=== PATIENT | female | born 1985 | race Two or more races ===

== ENCOUNTER 2022-08-17 02:31 | Day surgery (SDC) | payer BC, SELFPAY ==
[2022-08-03 15:20] VITALS: BMI 36.6
--- NOTE | 2022-08-03 15:25 | PC.NURSE ---
Report to the Outpatient Waiting Room, entrance under the green pavilion located off [facility], at time 0715 on date 08/17/22. Planned Procedure Time: 0915. Time changes happen often and if your time is changed the preop area will call you the afternoon before. - You and your visitor will be asked to self-screen and do not enter if you have any COVID symptoms. - Only one visitor is requested with a max of two and NO children visitors are allowed at this time. - The patient visitor may be requested to leave or wait in car when not with patient due to distancing restrictions. - A mask is optional within the hospital at this time. Patients may have clear liquids (water, carbonated beverages, clear teas, apple juice) until 3 hours prior to surgery with a maximum of 20 ounces. - No food from midnight until time of surgery Take the following medications with a SIP of water the morning of surgery: NONE DO NOT STOP ANY OF YOUR OTHER PRESCRIPTION MEDICATIONS PRIOR TO SURGERY EXCEPT THE FOLLOWING Medications to discontinue per physician: VITAMINS/SUPPLEMENTS Date to take last dose: 08/13/22 Please no make-up, nail turkmen, hairspray, perfume, deodorant, or body powder the day of surgery. No jewelry (including any body piercings) or valuables the day of surgery, leave them at home. Please take a shower or bath the night before, or the morning of, surgery with an antibacterial soap. Wear comfortable, loose fitting clothing. - Jewelry must be removed prior to entering the operating room. Rings and piercings that are not removed may be cut off. - The hospital will not accept responsibility for valuables. - Please leave all valuables, including medications, at home the day of surgery. If you are going home after surgery, a licensed coal tram driver must drive you home. - NO public transportation without another adult if you receive anesthesia. - We recommend that an adult stay with you for 24 hours following discharge. - We also recommend that you do not drive, make important decision, drink alcoholic beverages, or take any drugs that were not prescribed by your health care provider for at least 24 hours after your discharge time. Follow any additional instructions given to you from your surgeon. If you or anyone in your household have experienced Covid symptoms in the past week, please notify your surgeon or the nurse liaison at the phone number below for possible testing. Telephone instructions given to PT - SU HERNANDEZ and asked if any additional questions and then verbalized understanding. Patient advised to call surgeon office or pre surgery nurse liaison [phone] if any additional questions.
--- NOTE | 2022-08-15 15:39 | PM.IMHP ---
H&P: HPI History of Present Illness Date/Time: 08/15/22 15:39 36-year-old female 07/1000 presents for evaluation and treatment of heavy vaginal bleeding as well as tubal ligation. Her cycles are lasting 5-7 days with 3-5 days very heavy with clotting and cramping and has been told in the past that she has been anemic. Also desires sterilization. Ultrasound ordered prior to procedure revealed small uterine fibroid, and right paratubal cyst versus hydrosalpinx. Chief Complaint: 1. Menometrorrhagia 2. Undesired fertility Review of Systems Review of Systems: All systems reviewed & are unremarkable except as noted in HPI and below PMFSH Past Medical History Medical History Anemia Hypertension Family History Family History Sibling Anemia Grandparent Hypertension Social History Social History Smoking status: Current some day smoker Tobacco type: cigarettes Second hand tobacco smoke exposure: No Additional smoking assessment comments: ONCE A MONTH Alcohol intake: never Alcohol use details: 1 x month Substance use: never Substance use type: does not use Living arrangements: with family Additional living arrangements comments: Occupation/Education: occupation 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 Gender identity (if verbalized by the patient): Female Sexual Orientation (if Verbalized by the Patient): Straight or Heterosexual Spiritual care concerns: No Agree to blood products: Yes Meds Home Medications and Allergies Home Medications Medication Instructions Recorded Confirmed Type levocetirizine 5 mg tablet (Xyzal) 5 mg PO DAILY 10/26/21 08/03/22 History ferrous sulfate 325 mg (65 mg 325 mg PO DAILY 08/03/22 08/03/22 History iron) tablet (Iron (ferrous sulfate)) Allergies Allergy/AdvReac Type Severity Reaction Status Date / Time Penicillins Allergy Mild Swelling Verified 08/03/22 15:18 Exam Const: General: cooperative, healthy appearing and comfortable Resp: Effort & Inspection: normal respiratory effort Auscultation: clear to auscultation bilaterally Cardio: Rate: regular rate Rhythm: regular rhythm GI: Inspection: normal to inspection Auscultation: normal bowel sounds : External Female Exam: normal external appearance Speculum Exam - Vagina: normal appearance of the vagina Speculum Exam - Cervix: normal appearance of the cervix Bimanual exam- vagina & uterus: enlarged ( 8-10 week size) Bimanual Exam- Adnexa, other: normal adnexae Assessment and Plan Assessment and plan (1) Menometrorrhagia: Code(s): N92.1 - Excessive and frequent menstruation with irregular cycle Status: Acute Assessment and Plan: proceed with hysteroscopy with uterine curettings to be followed by endometrial ablation. (2) Encounter for female sterilization procedure: Code(s): Z30.2 - Encounter for sterilization Status: Acute Assessment and Plan: We discussed the permanence failure rate increased risk of ectopic and regret. She strongly desires to proceed with bilateral salpingectomy. 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
--- NOTE | 2022-08-16 14:27 | P.PNAN_ITS ---
Anes - Initial Pre Proc Eval Procedure: Operation Date: 08/17/22 09:15 Proposed Procedures p Hysteroscopy with Dilation and Currettage, Mariann Endometrial Ablation, Laparoscopic Bilateral Salpingectomy - Josh Briscoe MD Date/Time: 08/16/22 14:27 Surgeon: Josh Briscoe MD Pre Op Diagnosis: Menometrorrhagia, Desire Sterilization Patient Data Age: 36 Gender: F Height: 1.65 m Weight: 99.8 kg Allergies Allergy/AdvReac Type Severity Reaction Status Date / Time Penicillins Allergy Mild Swelling Verified 08/17/22 08:11 Home Medications Medication Instructions Recorded Confirmed Type levocetirizine 5 mg tablet (Xyzal) 5 mg PO DAILY 10/26/21 08/17/22 History ferrous sulfate 325 mg (65 mg 325 mg PO DAILY 08/03/22 08/17/22 History iron) tablet (Iron (ferrous sulfate)) Patient hx anesthesia problems: none Family hx anesthesia problems: none Results Review: All pre-operative results and documents have been reviewed as part of the pre- operative evaluation. 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 Gender identity (if verbalized by the patient): Female Sexual Orientation (if Verbalized by the Patient): Straight or Heterosexual Spiritual care concerns: No Agree to blood products: Yes Anes - Eval Final PreProcedure Day of Procedure 08/16/22 14:27 Patient weight: morbidly obese Heart: regular rate and rhythm Lungs: clear to auscultation and normal air movement Airway: Mallampati scale class II Neurological: alert and oriented Last oral intake: >/= 8 hours ASA classification: III Emergent: no Anesthetic plan: proceed Anesthesia type and monitoring: general ETT Results Review: All pre-operative results and documents have been reviewed as part of the pre- operative evaluation. Informed Consent: The patient's anesthetic plan and its attendant risks and benefits were discussed with the patient/family/POA. Questions were solicited and answers provided to the satisfaction of the patient/family/POA.
[2022-08-17] VITALS (8 sets, daily range): BP systolic 106–143; BP diastolic 58–83; PULSE 44–75; RESP 10–16; TEMP 36.3–36.8; O2SAT 96–100
--- NOTE | 2022-08-17 07:14 | WPDHPUPDATE1 ---
History and Physical Update Update Date/Time: 08/17/22 07:14 History and Physical has been reviewed, including an updated exam of the patient. There are NO changes in the patient's condition. Risks, benefits, and alternatives have been discussed and questions answered. Patient agrees to proceed with procedure.
[2022-08-17] MEDS: LACTATED RINGERS 1,000 ML 30 ML IV CONT (07:58)
[2022-08-17] MEDS: KETOROLAC 15 MG/ML VIAL (*BKC) IV PUSH (07:59)
[2022-08-17] MEDS: ACETAMINOPHEN 500 MG TABLET 1000 MG PO (07:59)
[2022-08-17] MEDS: ceFAZolin 3 GM/D5W 100 ML 100 ML IVPB (09:42)
--- NOTE | 2022-08-17 10:34 | W.PM.PROC2 ---
Procedure Note - Detailed Date of Procedure 08/17/22 Pre-op Diagnosis Menometrorrhagia Desire Sterilization Post-op Diagnosis Same Procedure Performed 1. Hysteroscopy with uterine curettings 2. Endometrial ablation 3. Laparoscopic bilateral salpingectomy Surgeon Josh Briscoe MD Anesthesia General Findings 1. Endometrial cavity no abnormalities 2. Laparoscopic exam revealed mildly enlarged uterus, with normal tubes and ovaries Description of Procedure Patient was prepped and draped in usual manner for this procedure. Attention was 1st placed the vagina and the cervix was dilated to allow the hysteroscope to be placed which revealed no abnormalities. Curettings were obtained and the instrument was placed for the ablation. Cavity assessment was performed, instrument activated, and at the end of the procedure hysteroscopic exam revealed good destruction throughout. Periumbilical incision was made through which the trocar was placed with visualization of abdominal and pelvic contents. Bilateral lower quadrant incisions were then made and trocars were again placed under direct visualization. Using Harmonic scalpel bilaterally the mesial salpinx were cauterized and both tubes removed without difficulty. There was no bleeding. Gas was allowed to escape incisions approximated using 4-0 Monocryl and the patient was sent to the cover room in stable condition. Estimated Blood Loss 10 Drains No Packing No Pathology Yes Complications No immediate complications Condition Stable Disposition PACU [facility] Billing Surgery - Charge Forward: Surgery Billing
[2022-08-17] MEDS: fentaNYL CITRATE INJ (*CRX) 100 MCG/2 ML VIAL 25 MCG IV PUSH (11:08)
[2022-08-17] MEDS: oxyCODONE HCL (*CRX) 5 MG TAB IR PO (11:45)
== END 2022-08-17 12:37 | disposition home or self-care (01) ==
PROVIDERS: PCP Family Medicine Adolescent Medicine; Visit Provider Obstetrics & Gynecology
PROC: 0UDB8ZZ Extraction of Endometrium, Via Natural or Artificial Opening Endoscopic (ICD-10-PCS; CPT 58558; principal; 2022-08-17 09:15)
DX: N92.1 Excessive and frequent menstruation with irregular cycle (principal); Z30.2 Encounter for sterilization; N83.8 Other noninflammatory disorders of ovary, fallopian tube and broad ligament; D64.9 Anemia, unspecified; F17.210 Nicotine dependence, cigarettes, uncomplicated; E66.01 Morbid (severe) obesity due to excess calories; Z68.42 Body mass index [BMI] 45.0-49.9, adult
CPT/HCPCS: 58563; 58661; 88302; 88305; A9270; J0690; J1100; J1885; J2250; J2405; J2704; J2710; J3010; J7120

== ENCOUNTER 2022-11-13 08:07 | Outpatient (CLI) | payer BC, SELFPAY ==
[2022-11-13 10:19] LABS: Hematocrit 39.1 % (37.0-47.0); Hemoglobin 12.2 g/dL (12.0-15.0); Mean Corpuscular HGB Conc 31.2 g/dl (32-36); Mean Corpuscular Hemoglobin 25.7 pg (26-34); Mean Corpuscular Volume 82.5 fl (80-100); Mean Platelet Volume 8.9 fl (7.4-10.4); Platelet Count Result 299 k/mm3 (150-375); Red Blood Count 4.74 M/mm3 (4.2-5.4); Red Cell Distribution Width 13.9 % (11.5-14.5); White Blood Count 9.6 K/mm3 (4.5-10.0)
[2022-11-13 10:20] LABS: Hematocrit 38.6 % (37.0-47.0); Hemoglobin 12.2 g/dL (12.0-15.0)
== END 2022-11-13 08:08 | disposition home or self-care (01) ==
PROVIDERS: Anesthesiology; PCP Family Medicine Adolescent Medicine; Visit Provider Obstetrics & Gynecology
DX: N93.9 Abnormal uterine and vaginal bleeding, unspecified (principal); D50.9 Iron deficiency anemia, unspecified; Z01.818 Encounter for other preprocedural examination
CPT/HCPCS: 36415; 85014; 85018; 85027; 86850; 86900; 86901

== ENCOUNTER 2022-11-17 01:48 | Day surgery (SDC) | payer BC, SELFPAY ==
[2022-11-08 13:06] VITALS: BMI 46.7
--- NOTE | 2022-11-08 13:26 | SUR.PREOP ---
Report to the Outpatient Waiting Room, entrance under the green pavilion located off [facility], at time 0600 on date 11/17/2022. Planned Procedure Time: 0730. Time changes happen often and if your time is changed the preop area will call you the afternoon before. - You and your visitor will be asked to self-screen and do not enter if you have any COVID symptoms. - A mask is optional within the hospital at this time. Patients may have clear liquids (water, carbonated beverages, clear teas, apple juice) until 3 hours prior to surgery with a maximum of 20 ounces- 0430. - No food from midnight until time of surgery - Infants may have breast milk until 4 hours before surgery, formula 6 hours prior to surgery. - Children will be allowed to drink immediately following surgery. If applicable, please bring a bottle or sippy cup to assist with drinking. Juice, water, soda, and popsicles are readily available. For infants on formula, please bring formula the day of surgery. Pacifiers are allowed. Take the following medications with a SIP of water the morning of surgery: N/A DO NOT STOP ANY OF YOUR OTHER PRESCRIPTION MEDICATIONS PRIOR TO SURGERY ?EXCEPT THE FOLLOWING Medications to discontinue per physician Iron Date to take last dose 11/13/2022 Please no make-up, nail turkmen, hairspray, perfume, deodorant, or body powder the day of surgery. No jewelry (including any body piercings) or valuables the day of surgery, leave them at home. Please take a shower or bath the night before, or the morning of, surgery with an antibacterial soap. Wear comfortable, loose fitting clothing. Children are encouraged to wear pajamas. - Jewelry must be removed prior to entering the operating room. Rings and piercings that are not removed may be cut off. - The hospital will not accept responsibility for valuables. - Please leave all valuables, including medications, at home the day of surgery. If you are going home after surgery, a licensed courtesy van driver must drive you home. - NO public transportation without another adult if you receive anesthesia. - We recommend that an adult stay with you for 24 hours following discharge. - We also recommend that you do not drive, make important decision, drink alcoholic beverages, or take any drugs that were not prescribed by your health care provider for at least 24 hours after your discharge time. For Pediatric surgeries, we recommend two adults accompany the child home. Follow any additional instructions given to you from your surgeon. If you or anyone in your household have experienced Covid symptoms in the past week, please notify your surgeon or the nurse liaison at the phone number below for possible testing. Telephone instructions given to patient- Dottie and asked if any additional questions and then verbalized understanding. Patient advised to call surgeon office or pre surgery nurse liaison [phone] if any additional questions.
--- NOTE | 2022-11-16 09:29 | P.PNAN_ITS ---
Anes - Initial Pre Proc Eval Procedure: Operation Date: 11/17/22 07:30 Proposed Procedures p Robotic Assisted Total Laparoscopic Hysterectomy - Josh Briscoe MD Date/Time: 11/16/22 09:29 Surgeon: Josh Briscoe MD Pre Op Diagnosis: abnormal uterine bleeding Patient Data Age: 37 Gender: F Height: 1.65 m Weight: 127.3 kg Allergies Allergy/AdvReac Type Severity Reaction Status Date / Time Penicillins Allergy Mild Swelling Verified 11/17/22 06:29 Home Medications Medication Instructions Recorded Confirmed Type levocetirizine 5 mg tablet (Xyzal) 5 mg PO DAILY 10/26/21 11/08/22 History ferrous sulfate 325 mg (65 mg 325 mg PO DAILY 08/03/22 11/08/22 History iron) tablet (Iron (ferrous sulfate)) ibuprofen 600 mg tablet 600 mg PO TID #30 tabs 08/17/22 11/08/22 Rx hydrocodone 5 mg-acetaminophen 325 1 tablet PO Q3H PRN Pain Rated 5 11/18/22 Rx mg tablet Or Less #20 tabs Patient hx anesthesia problems: none Family hx anesthesia problems: none Results Review: All pre-operative results and documents have been reviewed as part of the pre- operative evaluation. [facility] Past Medical History Medical History Anemia Hypertension Menometrorrhagia Obesity Smoker Surgical History Surgical History (Updated 11/20/22 @ 13:49 by KALEY Del Cid) History of hysterectomy including cervix (11/16/22) RATLH with ovarian preservation History of hysteroscopy (08/17/22) Hysteroscopy with uterine curettings Endometrial ablation Laparoscopic bilateral salpingectomy Family History Family History Sibling Anemia Grandparent Hypertension Social History Social History Years smoked: 18 Smoking status: Light tobacco smoker Tobacco type: cigarettes Second hand tobacco smoke exposure: No Additional smoking assessment comments: ONCE A MONTH Alcohol intake: former Alcohol use details: 1 x month Substance use: never Substance use type: does not use Living arrangements: with family Additional living arrangements comments: Occupation/Education: occupation 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 Gender identity (if verbalized by the patient): Female Sexual Orientation (if Verbalized by the Patient): Straight or Heterosexual Spiritual care concerns: No Agree to blood products: Yes Anes - Eval Final PreProcedure Day of Procedure 11/16/22 09:29 Patient weight: morbidly obese Heart: regular rate and rhythm Lungs: clear to auscultation Airway: Mallampati scale class II Neurological: alert and oriented Last oral intake: >/= 8 hours ASA classification: III Emergent: no Anesthetic plan: proceed Anesthesia type and monitoring: general ETT and standard monitoring Results Review: All pre-operative results and documents have been reviewed as part of the pre- operative evaluation. Informed Consent: The patient's anesthetic plan and its attendant risks and benefits were discussed with the patient/family/POA. Questions were solicited and answers provided to the satisfaction of the patient/family/POA.
[2022-11-17] VITALS (12 sets, daily range): BP systolic 93–149; BP diastolic 55–82; PULSE 44–74; RESP 12–24; TEMP 36.1–36.9; O2SAT 92–100
[2022-11-17] MEDS: LACTATED RINGERS 1,000 ML 30 ML IV CONT ×2 (06:50→09:08)
[2022-11-17] MEDS: KETOROLAC 15 MG/ML VIAL (*BKC) IV PUSH (06:50)
[2022-11-17] MEDS: ACETAMINOPHEN 500 MG TABLET 1000 MG PO (07:02)
--- NOTE | 2022-11-17 07:06 | WPDANESEPPF ---
Anes - Initial Pre Proc Eval Procedure: Operation Date: 11/17/22 07:30 Proposed Procedures p Robotic Assisted Total Laparoscopic Hysterectomy - Josh Briscoe MD Date/Time: 11/17/22 07:06 Surgeon: Josh Briscoe MD Pre Op Diagnosis: abnormal uterine bleeding Patient Data Age: 37 Gender: F Height: 1.65 m Weight: 127.3 kg Allergies Allergy/AdvReac Type Severity Reaction Status Date / Time Penicillins Allergy Mild Swelling Verified 11/17/22 06:29 Home Medications Medication Instructions Recorded Confirmed Type levocetirizine 5 mg tablet (Xyzal) 5 mg PO DAILY 10/26/21 11/08/22 History ferrous sulfate 325 mg (65 mg 325 mg PO DAILY 08/03/22 11/08/22 History iron) tablet (Iron (ferrous sulfate)) ibuprofen 600 mg tablet 600 mg PO TID #30 tabs 08/17/22 11/08/22 Rx progesterone micronized 200 mg 200 mg PO QHS 30 days #30 caps 10/19/22 11/08/22 Rx capsule (Prometrium) Patient hx anesthesia problems: none Family hx anesthesia problems: none Results Review: All pre-operative results and documents have been reviewed as part of the pre-operative evaluation. [facility] Past Medical History Medical History Anemia Hypertension Menometrorrhagia Obesity Smoker Surgical History Surgical History History of hysteroscopy (08/17/22) Hysteroscopy with uterine curettings Endometrial ablation Laparoscopic bilateral salpingectomy Family History Family History Sibling Anemia Grandparent Hypertension Social History Social History Years smoked: 18 Smoking status: Light tobacco smoker Tobacco type: cigarettes Second hand tobacco smoke exposure: No Additional smoking assessment comments: ONCE A MONTH Alcohol intake: former Alcohol use details: 1 x month Substance use: never Substance use type: does not use Living arrangements: with family Additional living arrangements comments: Occupation/Education: occupation 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 Gender identity (if verbalized by the patient): Female Sexual Orientation (if Verbalized by the Patient): Straight or Heterosexual Spiritual care concerns: No Agree to blood products: Yes Anes - Eval Final PreProcedure Day of Procedure 11/17/22 07:06 Patient weight: morbidly obese Heart: regular rate and rhythm Lungs: clear to auscultation Airway: Mallampati scale class III Neurological: alert and oriented Last oral intake: >/= 8 hours ASA classification: III Emergent: no Anesthetic plan: proceed Anesthesia type and monitoring: general ETT and standard monitoring Results Review: All pre-operative results and documents have been reviewed as part of the pre-operative evaluation. Informed Consent: The patient's anesthetic plan and its attendant risks and benefits were discussed with the patient/family/POA. Questions were solicited and answers provided to the satisfaction of the patient/family/POA.
--- NOTE | 2022-11-17 07:20 | WPDHPUPDATE1 ---
History and Physical Update Update Date/Time: 11/17/22 07:20 History and Physical has been reviewed, including an updated exam of the patient. There are NO changes in the patient's condition. Risks, benefits, and alternatives have been discussed and questions answered. Patient agrees to proceed with procedure.
[2022-11-17] MEDS: ceFAZolin 3 GM/D5W 100 ML 100 ML IVPB (07:25)
--- NOTE | 2022-11-17 08:52 | W.PM.PROC2 ---
Procedure Note - Detailed Date of Procedure 11/17/22 Pre-op Diagnosis abnormal uterine bleeding Post-op Diagnosis Same Procedure Performed Robotic assisted total laparoscopic hysterectomy with ovarian preservation Surgeon Josh Briscoe MD Anesthesia General Findings Mildly enlarged, globular uterus. Tubes surgically absent. Ovaries without abnormality. Description of Procedure Patient prepped and draped usual manner this procedure. Cervical instruments placed for uterine mobility throughout the case. Attention is then placed the abdomen and abdominal trocar sites were marked and placed under direct visualization. The Yady system was attached to these trocars and the instruments were placed under direct visualization. Surgeon then moved to the console with findings as noted above. Round ligament cauterized and cut bladder flap developed without difficulty posterior leaf the broad ligament was also dissected. Utero-ovarian ligaments were cauterized and cut to release the ovary out of the operative field. Uterine vessels then skeletonized cauterized and cut and rendered hemostatic. The anterior colpotomy incision was made and this was carried circumferentially to release the cervix from the vagina. Uterus was then delivered into the vagina without difficulty. Vaginal cuff was then closed using V lock suture from the right angle to midline and left angle to midline with good approximation hemostasis noted. Irrigation was undertaken, there was no significant bleeding. Ashlee was placed empirically over the surgical edges. At this point the procedure was considered terminated, gas was allowed to escape incisions were approximated using 4-0 Monocryl after the trocars were removed. Patient was then sent to recovery room in stable condition. Estimated Blood Loss 50 Drains No Packing No Pathology Yes Complications No immediate complications Condition Stable Disposition PACU [facility] Billing Surgery - Charge Forward: Surgery Billing
[2022-11-17] MEDS: fentaNYL CITRATE INJ (*CRX) 100 MCG/2 ML VIAL 25 MCG IV PUSH ×4 (09:13→10:12)
[2022-11-17] MEDS: diphenhydrAMINE HCl INJ 50 MG/ML VIAL 25 MG IV PUSH (09:22)
--- NOTE | 2022-11-17 10:50 | ADMGEN ---
1030-This patient, Dottie Parsons, was admitted to OB 2nd Floor Room 280-00. Patient/family oriented to hospital policies and general routines including ID bracelet, bed and alarms, visiting hours, pain management, procedures, bathroom and other care routines, personal items, smoking policy, room service/diet, and visiting hours. Information on how to activate the Rapid Response Team has been discussed. Patient/Family are encouraged to report perceived risks to care and to ask questions if they do not understand what they are told or what they should do.
[2022-11-17] MEDS: DEXTROSE 5%/0.45% SOD CHL 1,000 ML 125 ML IV CONT (11:02)
[2022-11-17] MEDS: KETOROLAC 30 MG/ML VIAL (*BKC) IV PUSH ×2 (11:08→18:54)
[2022-11-17] MEDS: HYDROcodone/acetaminophen (*CRX) 10-325 MG TABLET 1 TAB PO ×2 (14:18→22:49)
[2022-11-17] MEDS: SIMETHICONE 80 MG TAB.CHEW PO (22:49)
[2022-11-18 04:00] VITALS: BP 112/65; PULSE 54; RESP 18; TEMP 36.9; O2SAT 99
[2022-11-18] MEDS: IBUPROFEN 600 MG TABLET PO (04:03)
[2022-11-18] MEDS: HYDROcodone/acetaminophen (*CRX) 5-325 MG TABLET 1 TAB PO (04:03)
[2022-11-18] MEDS: SIMETHICONE 80 MG TAB.CHEW PO ×2 (04:04→07:28)
[2022-11-18 05:51] LABS: Basophils Absolute Auto 0.1 K/mm3 (0.0-0.1); Basophils Percent Auto 0.9 % (0.2-1.2); Eosinophils Absolute Auto 0.3 K/mm3 (0-0.3); Eosinophils Percent Auto 2.2 % (0-4.4); Hematocrit 33.6 % (37.0-47.0); Hemoglobin 10.9 g/dL (12.0-15.0); Immature Granulocyte Absolute 0.05 K/mm3 (0.00-0.031); Immature Granulocyte Percent A 0.4 % (0-0.5); Lymphocytes Absolute Auto 1.94 K/mm3 (0.9-3.2); Lymphocytes Percent Auto 14.9 % (18.3-44.2); Mean Corpuscular HGB Conc 32.4 g/dl (32-36); Mean Corpuscular Hemoglobin 26.3 pg (26-34); Mean Platelet Volume 8.8 fl (7.4-10.4); Monocytes Absolute Auto 0.8 K/mm3 (0.1-0.6); Neutrophils Absolute Auto 9.8 K/mm3 (1.3-6.7); Neutrophils Percent Auto 75.6 % (45.5-73.1); Platelet Count Result 299 k/mm3 (150-375); Red Blood Count 4.15 M/mm3 (4.2-5.4)
[2022-11-18 07:20] VITALS: BP 123/63; PULSE 57; RESP 18; TEMP 36.4; O2SAT 100
[2022-11-18] MEDS: HYDROcodone/acetaminophen (*CRX) 10-325 MG TABLET 1 TAB PO ×2 (07:27→11:17)
[2022-11-18] MEDS: LORATADINE 10 MG TABLET PO (07:28)
--- NOTE | 2022-11-18 10:07 | P.PNAN_ITS ---
Anes - Prog Note Post-Op Date/Time: 11/18/22 10:07 Cardiovascular status: normal Respiratory status: normal Airway patency: baseline Mental status: baseline Post-Op hydration status: normal Vital Signs: Last Vital Signs Temp 98.5 F 11/18/22 04:00 Pulse 54 L 11/18/22 04:00 Resp 18 11/18/22 04:00 BP 112/65 11/18/22 04:00 Pulse Ox 99 11/18/22 04:00 O2 Del Method Room Air 11/18/22 04:00 O2 Flow Rate 6 11/17/22 09:35 Pain Score (VAS): 0 I/O: Intake & Output 11/17/22 11/18/22 11/18/22 23:59 07:59 15:59 Intake Total 1416 300 Output Total 1750 400 Balance -334 -100 Laboratory Tests 11/18/22 04:07 11/18/22 04:07 WBC 13.0 H RBC 4.15 L Hgb 10.9 L Hct 33.6 L MCV 81.0 MCH 26.3 MCHC 32.4 RDW 14.0 Plt Count 299 MPV 8.8 Immature Gran % (Auto) 0.4 Neut % (Auto) 75.6 H Lymph % (Auto) 14.9 L Aiken % (Auto) 6.0 Eos % (Auto) 2.2 Baso % (Auto) 0.9 Lymph # (Auto) 1.94 Aiken # (Auto) 0.8 H Eos # (Auto) 0.3 Baso # (Auto) 0.1 Abs Immat Gran (auto) 0.05 H Absolute Neuts (auto) 9.8 H Absolute Nucleated RBC 0.0 Nucleated RBC % 0.0 Post-procedural complaints: none Patient Feedback: Patient satisfied with anesthetic care.
== END 2022-11-18 13:05 | disposition home or self-care (01) ==
LOC: ANHSURGERY 06:06 → ANHOB2 12:54
PROVIDERS: PCP Family Medicine Adolescent Medicine; Visit Provider Obstetrics & Gynecology
PROC: (CPT 58550; principal; 2022-11-17 07:30)
DX: D25.9 Leiomyoma of uterus, unspecified (principal); N93.9 Abnormal uterine and vaginal bleeding, unspecified; I10 Essential (primary) hypertension; Z72.0 Tobacco use; Z98.890 Other specified postprocedural states
CPT/HCPCS: 58550; S2900; 36415; 85025; 88307; 99199; A9270; J0690; J1100; J1170; J1200; J1885; J2250; J2405; J2704; J2710; J3010; J7030; J7120

== ENCOUNTER 2025-06-09 14:30 | Outpatient (CLI) | payer BC, SELFPAY ==
--- NOTE | ~2025-06-09 | MM_ITS ---
EXAMINATION: MM screening nadiya BI w tyra HISTORY: Screening. TECHNIQUE: Craniocaudal and mediolateral oblique 3-D tomosynthesis images were obtained and synthetic 2-D images were generated. CAD analysis was submitted and interpreted. COMPARISON: None available. BREAST PARENCHYMAL COMPOSITION: Dense: The breasts are heterogeneously dense FINDINGS: There is an asymmetry at the posterior aspect of the right MLO view. There are no suspicious calcifications. No unexplained architectural distortion is seen. There are no skin or nipple abnormalities identified. There is no adenopathy seen on the images submitted. IMPRESSION: Asymmetry in the right for which additional imaging is recommended. BI-RADS 0 - Incomplete - needs additional imaging evaluation Reviewed, dictated and finalized at location C. 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
== END 2025-06-09 14:31 | disposition home or self-care (01) ==
LOC: MICIMG 14:30
PROVIDERS: PCP Nurse Practitioner Family; Visit Provider Nurse Practitioner Family
DX: Z12.31 Encounter for screening mammogram for malignant neoplasm of breast (principal); R92.8 Other abnormal and inconclusive findings on diagnostic imaging of breast
CPT/HCPCS: 77063; 77067